=== PATIENT | female | born 1980 | race Caucasian/White ===

== ENCOUNTER 2025-04-24 00:20 | Inpatient (IN) | payer OTHER ==
[2025-04-24] VITALS (11 sets, daily range): BP systolic 113–120; BP diastolic 66–78; PULSE 86–111; RESP 17–26; TEMP 97.9–98.2; O2SAT 94–100
[~2025-04-24] VITALS: Ht 157.5 cm; Wt 59.1 kg
[2025-04-24 01:23] LABS: PLATELET COUNT (AUTO) 372 K/uL (150-450); RED BLOOD CELL COUNT(AUTO) 4.57 MIL/uL (4.00-5.20); RED CELL DISTRIBUTION WIDTH 12.4 % (11.5-14.5); WHITE BLOOD COUNT (AUTO) 12.1 K/uL (4.5-11.0)
[2025-04-24 01:33] LABS: CALCIUM, TOTAL 8.8 mg/dL (8.8-10.5); CREATININE 0.78 mg/dL (0.60-1.30); GLOMERULAR FILTR. RATE CALC > 60 mL/min (>60); GLUCOSE,RANDOM 115 mg/dL (70-110); SODIUM SERUM 139 mmol/L (136-145); UREA NITROGEN, BLOOD 18 mg/dL (7-18)
[2025-04-24 02:00] LABS: COVID AG,FIA SOURCE NASAL SWAB
[2025-04-24 02:20] LABS: SARS-COV2 (COVID) ANTIGEN,FIA Negative (Negative)
[2025-04-24] MEDS ORDERED: 0.9% SODIUM CHLORIDE 15 ML NEB SOLUTION NEB ONE (04:10)
[2025-04-24] MEDS: ALBUTEROL SULFATE 2.5 MG/0.5 ML 5 ML NEB SOLUTION NEB ONE (04:11)
[2025-04-24] MEDS: IPRATROPIUM BROMIDE 0.5 MG/2.5 ML NEB SOLUTION NEB ONE (04:11)
[2025-04-24] MEDS: EPINEPHrine 1:1,000 [1 MG/ML] VIAL IM ONE (04:26)
[2025-04-24] MEDS: SODIUM CHLORIDE 0.9% 1,000 ML IV ONE (04:27)
[2025-04-24] MEDS: POTASSIUM CHLORIDE 20 MEQ ER TABLET PO ONE (06:39)
[2025-04-24] MEDS ORDERED: HYDROCODONE/ACETAMINOPHEN 5-325 MG TABLET PO PRN (10:15)
[2025-04-24] MEDS ORDERED: MORPHINE SULFATE 2 MG/ML SYRINGE IVP PRN (10:15)
[2025-04-24] MEDS ORDERED: IPRATROPIUM BROMIDE 0.5 MG/2.5 ML NEB SOLUTION NEB PRN (10:15)
[2025-04-24] MEDS ORDERED: ZOLPIDEM TARTRATE 5 MG TABLET PO PRN (10:15)
[2025-04-24] MEDS ORDERED: MAGNESIUM HYDROXIDE SUSPENSION 30 ML UDCUP PO PRN (10:15)
[2025-04-24] MEDS ORDERED: ALBUTEROL SULFATE 2.5 MG/0.5 ML NEB SOLUTION NEB PRN (10:15)
[2025-04-24] MEDS ORDERED: ONDANSETRON HCL 4 MG/2 ML VIAL IVP PRN (10:15)
[2025-04-24] MEDS ORDERED: BISACODYL 10 MG RECTAL RECTAL SUPPOSITORY PR PRN (10:15)
[2025-04-24] MEDS ORDERED: SODIUM CHLORIDE 0.9% 500 ML IV ONE (12:13)
[2025-04-24] MEDS: AZITHROMYCIN 500 MG/NS 250 ML IV SCH (12:15)
[2025-04-24] MEDS: CefTRIAXone 1 GM/DEXTROSE 50 ML IV SCH (12:15)
[2025-04-24] MEDS: HEPARIN SODIUM,PORCINE 5,000 UNITS/ML VIAL SQ SCH (15:57)
[2025-04-24] MEDS: BENZONATATE 100 MG CAPSULE PO SCH (15:57)
[2025-04-24] MEDS: BUDESONIDE 0.5 MG/2 ML NEB SOLUTION NEB SCH (19:40)
[2025-04-24] MEDS: IPRATROPIUM BROMIDE 0.5 MG/2.5 ML NEB SOLUTION NEB SCH (19:40)
[2025-04-24] MEDS: ALBUTEROL SULFATE 2.5 MG/0.5 ML NEB SOLUTION NEB SCH (20:00)
[2025-04-24] MEDS: DOCUSATE SODIUM 100 MG CAPSULE PO SCH (20:00)
[2025-04-24] MEDS: GuaiFENesin SR 600 MG ER TABLET PO SCH (20:15)
[2025-04-25] VITALS (9 sets, daily range): BP systolic 109–122; BP diastolic 64–82; PULSE 73–100; RESP 18–24; TEMP 97.5–98; O2SAT 96–100
[2025-04-25 06:16] LABS: PLATELET COUNT (AUTO) 349 K/uL (150-450); RED BLOOD CELL COUNT(AUTO) 4.44 MIL/uL (4.00-5.20); RED CELL DISTRIBUTION WIDTH 12.3 % (11.5-14.5); WHITE BLOOD COUNT (AUTO) 14.4 K/uL (4.5-11.0)
[2025-04-25 06:43] LABS: CALCIUM, TOTAL 8.7 mg/dL (8.8-10.5); CREATININE 0.56 mg/dL (0.60-1.30); GLOMERULAR FILTR. RATE CALC > 60 mL/min (>60); GLUCOSE,RANDOM 152 mg/dL (70-110); SODIUM SERUM 140 mmol/L (136-145); UREA NITROGEN, BLOOD 12 mg/dL (7-18)
[2025-04-25 07:04] LABS: RBC MORPHOLOGY COMMENT NORMAL RBC MORPH
[2025-04-25 08:11] LABS: APPEARANCE,URINE CLEAR (CLEAR); GLUCOSE, URINE (UA) 150-200 mg/dL (NEGATIVE); LEUKOCYTE ESTERASE ,URINE NEGATIVE (NEGATIVE); NITRATE,URINE NEGATIVE (NEGATIVE); OCCULT BLOOD,URINE TRACE (NEGATIVE); PH,URINE DRUG SCREEN 5.5 (5.0-8.0); SPECIFIC GRAVITIY, URINE 1.019 (1.003-1.030)
[2025-04-25] MEDS: ACETAMINOPHEN 325 MG TABLET PO PRN (08:19)
[2025-04-25] MEDS: PANTOPRAZOLE SODIUM 40 MG DR TABLET PO SCH (08:19)
[2025-04-25 08:21] LABS: ALCOHOL, URINE DRUG SCREEN NEGATIVE (NEGATIVE); AMPHET/METH SCREEN,URINE POSITIVE (NEGATIVE); BARBITURATE SCREEN, URINE NEGATIVE (NEGATIVE); CANNABINOID SCREEN,URINE NEGATIVE (NEGATIVE); METHADONE SCREEN, URINE NEGATIVE (NEGATIVE)
[2025-04-25 08:33] LABS: SQUAMOUS EPITHELIAL CELL,UR Rare /LPF (None Seen)
[2025-04-25 09:27] LABS: COCAINE SCREEN,URINE NEGATIVE (NEGATIVE)
== END 2025-04-25 12:35 | disposition left against medical advice (07) | DRG 140 ==
LOC: EMS 01:06 → EDH 05:09 → 5S 06:50
PROVIDERS: ADMIT Internal Medicine; ATTEND Internal Medicine
DX: J44.1 Chronic obstructive pulmonary disease with (acute) exacerbation (principal); J96.90 Respiratory failure, unspecified, unspecified whether with hypoxia or hypercapnia; J45.901 Unspecified asthma with (acute) exacerbation; F41.9 Anxiety disorder, unspecified; E87.6 Hypokalemia; Z20.822 Contact with and (suspected) exposure to COVID-19; F10.90 Alcohol use, unspecified, uncomplicated; Y90.0 Blood alcohol level of less than 20 mg/100 ml; Z53.29 Procedure and treatment not carried out because of patient's decision for other reasons; F14.90 Cocaine use, unspecified, uncomplicated; F17.200 Nicotine dependence, unspecified, uncomplicated; Z90.710 Acquired absence of both cervix and uterus
CPT/HCPCS: 71045; 80048; 80307; 81001; 84703; 85025; 94640; 94644; 94760; 96361; 96372; 96374; 99285; G0480; J0169; J0456; J0696; J1644; J2919; J7030; J7040; 36415-L1; 36415-TC; J7613